=== PATIENT | female | born 1975 | race Hispanic/Latino ===

== ENCOUNTER 2021-09-10 15:00 | Outpatient (CLI) | payer BC | END 2021-09-10 15:01 | disposition home or self-care (01) | LOC: BICMRI 15:00 | PROVIDERS: ATTEND Internal Medicine | DX: M79.601 Pain in right arm (principal); M79.602 Pain in left arm; R20.0 Anesthesia of skin; M50.223 Other cervical disc displacement at C6-C7 level | CPT/HCPCS: 72141 ==

== ENCOUNTER 2022-06-02 15:36 | Outpatient (CLI) | payer BC | END 2022-06-02 15:37 | disposition home or self-care (01) | LOC: DTY/OP 15:36 | PROVIDERS: ATTEND Internal Medicine | DX: E11.9 Type 2 diabetes mellitus without complications (principal); E78.00 Pure hypercholesterolemia, unspecified; E66.09 Other obesity due to excess calories; R79.89 Other specified abnormal findings of blood chemistry; Z68.37 Body mass index [BMI] 37.0-37.9, adult; Z71.3 Dietary counseling and surveillance | CPT/HCPCS: 97802 ==